=== PATIENT | male | born 1965 | race Caucasian/White ===

== ENCOUNTER 2020-11-06 07:46 | Day surgery (SDC) | payer MEDICAID ==
[2020-11-06] MEDS ORDERED: Propofol 200 MG/20 ML SDV ONE (08:01)
[2020-11-06] MEDS ORDERED: Midazolam 1 MG/ML 2 ML SDV ONE (08:01)
[2020-11-06] MEDS ORDERED: fentaNYL 100 MCG/2 ML SDV ONE (08:01)
[2020-11-06] MEDS ORDERED: Sodium Chloride 0.9% 1,000 ML IV SCH (08:30)
--- NOTE | 2020-11-06 09:34 | OR ---
DATE OF PROCEDURE: 11/06/2020 SURGEON: Carter Borjas MD PROCEDURE: Colonoscopy with endoscopic mucosal resection of sigmoid colon polyp. COMPLICATIONS: None. STUDENT TRUCK DRIVER: None. ANESTHESIA: MAC. PREOPERATIVE DIAGNOSIS: Screening colonoscopy. POSTOPERATIVE DIAGNOSIS: Screening colonoscopy. RISKS: Risks, benefits, alternatives, and limitations including, but not limited to infection, bleeding, perforation, false positives and false negatives were explained to the patient and he wished to proceed. PROCEDURE IN DETAIL: The patient was placed in left lateral decubitus position. Digital rectal exam was performed without abnormality. Scope was introduced and advanced atraumatically to the ileocecal valve. A photo was taken of the appendiceal orifice. The scope was brought back to the ascending, transverse, descending colon, and retroflexed. In the sigmoid colon, the aforementioned polyps were identified. This was elevated in classic endoscopic mucosal resection technique using Anitha Ink as the elevator in all 4 quadrants and subsequently excising. Greater than 8 minutes was spent removing the scope. Prep was acceptable, approximately 90% of the luminal surface could be seen. The patient tolerated the procedure well. Carter Borjas MD /[id number]
== END 2020-11-06 10:32 | disposition home or self-care (01) ==
LOC: JP.SDS 07:46
PROVIDERS: ATTEND Surgery
DX: Z12.11 Encounter for screening for malignant neoplasm of colon (principal); D12.5 Benign neoplasm of sigmoid colon; J45.909 Unspecified asthma, uncomplicated; Z88.1 Allergy status to other antibiotic agents
CPT/HCPCS: 45381; 45390; J2250; J2704; J3010; J7030

== ENCOUNTER 2024-10-03 04:37 | Emergency (ER) | payer MEDICAID, OTHER ==
[2024-10-03 05:05] LABS: APPEARANCE,URINE TURBID (CLEAR); GLUCOSE,URINE NEGATIVE (NEGATIVE); OCCULT BLOOD,URINE MODERATE (NEGATIVE)
[2024-10-03 05:06] LABS: SQUAMOUS EPITHELIAL CELLS,UR NOT SEEN /HPF
[2024-10-03 06:12] LABS: BASOPHILS ABSOLUTE AUTO 0.05 K/uL (0.00-0.10); BASOPHILS PERCENT AUTO 0.4 % (0.1-1.3); EOSINOPHILS ABSOLUTE AUTO 0.32 K/uL (0.00-0.40); EOSINOPHILS PERCENT AUTO 2.4 % (0.0-5.4); IMMATURE GRAN ABSOLUTE AUTO 0.04 K/uL (0.00-0.23); IMMATURE GRAN PERCENT AUTO 0.3 % (0.0-0.7); LYMPHOCYTES ABSOLUTE AUTO 1.47 K/uL (0.8-3.3); LYMPHOCYTES PERCENT AUTO 11.1 % (11.4-47.7); MONOCYTES ABSOLUTE AUTO 0.98 K/uL (0.20-0.90); MONOCYTES PERCENT AUTO 7.4 % (3.3-12.6); NEUTROPHILS ABSOLUTE AUTO 10.37 K/uL (1.0-7.6); NEUTROPHILS PERCENT AUTO 78.4 % (40.0-78.1); PLATELET COUNT,PLT 285 K/uL (130-375); RED BLOOD CELL COUNT 4.84 M/uL (4.14-5.76); WHITE BLOOD CELL COUNT,WBC 13.2 K/uL (3.2-11.0)
[2024-10-03] MEDS: Sodium Chloride 0.9% 10 ML Syringe FLUSH PRN ×2 (06:15→06:31)
[2024-10-03 06:29] LABS: BLOOD UREA NITROGEN,BUN 9 mg/dL (7-18); CARBON DIOXIDE,CO2 29 mmol/L (21-32); CHLORIDE,CL 100 mmol/L (100-108); CREATININE 1.0 mg/dL (0.8-1.3); EST CRCL DRUG DOSING (CG) 77.57 mL/min; ESTIMATED GFR 86 mL/min (>60); GLUCOSE RANDOM 106 mg/dL (74-106); POTASSIUM,K 4.0 mmol/L (3.6-5.2); SODIUM,NA 136 mmol/L (140-148)
[2024-10-03] MEDS: Iopamidol 612 MG/ML 100 ML Bottle IV PRN (06:31)
== END 2024-10-03 07:38 | disposition home or self-care (01) ==
LOC: JP.ED 04:37
DX: R31.0 Gross hematuria (principal); N32.89 Other specified disorders of bladder; E78.00 Pure hypercholesterolemia, unspecified; I10 Essential (primary) hypertension; Z88.6 Allergy status to analgesic agent
CPT/HCPCS: 36415; 74178; 80048; 81001; 85025; 86140; 99284; J7030; Q9967